=== PATIENT | male | born 1960 | race Caucasian/White ===

== ENCOUNTER 2022-07-21 20:45 | Inpatient (IN) ==
[2022-07-21] MEDS ORDERED: ASPIRIN 325 MG TABLET PO STA (21:37)
[2022-07-21] MEDS ORDERED: ONDANSETRON 4 MG/2 ML VIAL IV STA (21:37)
[2022-07-21] MEDS ORDERED: FUROSEMIDE 40 MG/4 ML VIAL IV STA (21:37)
[2022-07-21] MEDS ORDERED: ALBUTEROL/IPRATROPIUM 3 ML NEB RESP TX STA (21:37)
[2022-07-21] MEDS ORDERED: methylPREDNISolone SOD SUC 125 MG/2 ML VIAL IV STA (21:37)
[2022-07-21] MEDS ORDERED: ALBUTEROL NEB SOLN 5 MG/ML 20 ML/BOTTLE CONT NEB SCH (22:00)
[2022-07-21 22:02] LABS: Basophils # 0.1 10*3/uL (0.0-0.2); Basophils % 0.3 % (0.0-0.8); Hematocrit 46.2 VOL% (42.0-52.0); Immature Granulocytes % 2.7 %; Immature Granulocytes Absolute 0.76 #; Lymphocytes # 0.8 10*3/uL (1.4-4.0); Lymphocytes % 2.7 % (21.2-54.2); Mean Corpuscular HGB Conc 32.5 GM/DL (32-36); Mean Corpuscular Volume 91.3 FL (87-102); Monocytes # 2.2 10*3/uL (0.11-0.8); Monocytes % 7.8 % (1.7-12.7); NRBC # 0.03 10*3/uL; Neutrophils % 86.5 % (38.7-73.9); Platelet Count 422 T/CUMM (130-400); Red Blood Count 5.06 MC/CUMM (3.8-5.5); Red Cell Distribution Width 13.6 % (9.3-17.3); White Blood Count 27.9 T/CUMM (4-12)
[2022-07-21 22:14] LABS: Arterial Base Excess iSTAT 4 MMOL/L (-2.5-2.5); Arterial Bicarbonate iSTAT 31.2 MMOL/L (20-26); Arterial O2 Saturation iSTAT 99 % (95-100); Arterial PCO2 iSTAT 57 MM HG (35-48); Arterial PO2 iSTAT 142 MM HG (80-95); Arterial Total CO2 iSTAT 33 MMO/L (23-27); Arterial pH iSTAT 7.348 (7.35-7.45)
[2022-07-21 22:22] LABS: Alanine Aminotransferase 38 U/L (16-61); Albumin 3.2 G/DL (3.4-5.0); Alkaline Phosphatase 94 U/L (45-117); Aspartate Amino Transferase 16 U/L (0-37); Bilirubin,Total < 0.39 MG/DL (0.20-1.00); Blood Urea Nitrogen 27 MG/DL (7-18); Calcium 9.8 MG/DL (8.5-10.1); Carbon Dioxide 29 MMOL/L (21-32); Chloride 99 MMOL/L (98-107); Glucose 95 MG/DL (74-106); Osmolality,Calculated 274.1 MOS/KG (273-304); Sodium 135 MMOL/L (136-145); Total Protein 7.5 G/DL (6.4-8.2)
[2022-07-21 22:23] LABS: Lymphocytes 3 % (20-55); Platelet Estimate Increased; Total Cells Counted 100
[2022-07-22 01:02] LABS: Hyaline Casts,Urine 12 /LPF (0-3); Mucus,Urine Occasional /LPF (Occasional); RBC,Urine <1 /HPF (0-4); Squamous Epithelial Cell,Urine Occasional /HPF (0-10)
[2022-07-22 01:04] LABS: Bilirubin,Urine Negative (Negative); Blood, Urine Negative (Negative); Glucose,Urine (UA) Negative (Negative); Ketones,Urine Negative (Negative); Nitrite,Urine Negative (Negative); Protein,Urine Negative (Negative); Urine Appearance Clear (Clear); Urine Color Yellow (Yellow); Urine Urobilinogen 0.2 eU/dL (<2.0); Urine pH 5.5 (4.5-8.0)
[2022-07-22 01:06] LABS: Barbiturates Screen,Urine Negative (Negative); Benzodiazepines Screen,Urine Negative (Negative); Cannabinoid Screen,Urine Negative (Negative); Opiate Screen,Urine Positive (Negative); Phencyclidine Screen,Urine Negative (Negative)
[2022-07-22] MEDS: LEVOFLOXACIN INJ 750 MG/150 ML PREMIX IV SCH (02:40)
[2022-07-22] MEDS: ALBUTEROL 1.25 MG/3 ML NEB RESP TX PRN (05:00)
[2022-07-22 06:55] LABS: Basophils # 0.1 10*3/uL (0.0-0.2); Basophils % 0.3 % (0.0-0.8); Hematocrit 43.7 VOL% (42.0-52.0); Hemoglobin 14.1 GM/DL (14.0-18.0); Immature Granulocytes % 3.3 %; Lymphocytes # 0.5 10*3/uL (1.4-4.0); Lymphocytes % 1.9 % (21.2-54.2); Mean Corpuscular HGB Conc 32.3 GM/DL (32-36); Mean Corpuscular Volume 91.6 FL (87-102); Mean Platelet Volume 10.1 FL (9.6-12.0); Monocytes # 0.6 10*3/uL (0.11-0.8); Monocytes % 2.4 % (1.7-12.7); Neutrophils % 92.1 % (38.7-73.9); Platelet Count 386 T/CUMM (130-400); Red Blood Count 4.77 MC/CUMM (3.8-5.5); Red Cell Distribution Width 13.4 % (9.3-17.3)
[2022-07-22] MEDS: ALBUTEROL/IPRATROPIUM 3 ML NEB RESP TX SCH ×3 (06:55→13:26)
[2022-07-22 07:14] LABS: Lymphocytes 2 % (20-55); Platelet Estimate Adequate; Total Cells Counted 100
[2022-07-22 07:20] LABS: Alanine Aminotransferase 32 U/L (16-61); Albumin 2.5 G/DL (3.4-5.0); Alkaline Phosphatase 87 U/L (45-117); Aspartate Amino Transferase 15 U/L (0-37); Bilirubin,Total < 0.39 MG/DL (0.20-1.00); Blood Urea Nitrogen 26 MG/DL (7-18); Calcium 9.7 MG/DL (8.5-10.1); Carbon Dioxide 23 MMOL/L (21-32); Chloride 96 MMOL/L (98-107); Glucose 142 MG/DL (74-106); Osmolality,Calculated 261.2 MOS/KG (273-304); Potassium 5.2 MMOL/L (3.5-5.1); Sodium 127 MMOL/L (136-145); Total Protein 7.4 G/DL (6.4-8.2)
[2022-07-22] MEDS: BUDESONIDE/FORMOTEROL 160-4.5 INHALER 6 GM INH SCH ×2 (09:43→22:00)
[2022-07-22] MEDS: ENOXAPARIN 40 MG/0.4 ML SYRINGE SUBCUT SCH (09:43)
[2022-07-22] MEDS: methylPREDNISolone SOD SUC 40 MG/1 ML VIAL IV SCH ×2 (09:43→17:18)
[2022-07-22] MEDS: oxyCODONE/ACETAMINOPHEN 5-325 MG TABLET PO PRN ×3 (10:50→19:31)
[2022-07-23] MEDS: oxyCODONE/ACETAMINOPHEN 5-325 MG TABLET PO PRN ×4 (00:46→16:12)
[2022-07-23] MEDS: methylPREDNISolone SOD SUC 40 MG/1 ML VIAL IV SCH ×3 (00:57→16:12)
[2022-07-23] MEDS: LEVOFLOXACIN INJ 750 MG/150 ML PREMIX IV SCH (02:35)
[2022-07-23] MEDS: ALBUTEROL/IPRATROPIUM 3 ML NEB RESP TX SCH ×4 (07:30→19:10)
[2022-07-23] MEDS: ENOXAPARIN 40 MG/0.4 ML SYRINGE SUBCUT SCH (09:37)
[2022-07-23] MEDS: ASPIRIN CHEW 81 MG TABLET PO SCH (09:37)
[2022-07-23] MEDS: BUDESONIDE/FORMOTEROL 160-4.5 INHALER 6 GM INH SCH ×2 (09:38→21:35)
[2022-07-23] MEDS: ALBUTEROL 1.25 MG/3 ML NEB RESP TX PRN (11:03)
[2022-07-23] MEDS ORDERED: ALPRAZolam 0.5 MG TABLET PO PRN (11:11)
[2022-07-23] MEDS ORDERED: traZODone 50 MG TABLET PO PRN (13:44)
[2022-07-23] MEDS: VENLAFAXINE XR 75 MG CAPSULE PO SCH (13:54)
[2022-07-23] MEDS: NICOTINE 21 MG/24 HR PATCH TRANSDERM SCH (15:31)
[2022-07-23] MEDS: clonazePAM 0.5 MG TABLET PO SCH (21:36)
[2022-07-24] MEDS: methylPREDNISolone SOD SUC 40 MG/1 ML VIAL IV SCH ×3 (00:10→16:40)
[2022-07-24] MEDS: ALBUTEROL/IPRATROPIUM 3 ML NEB RESP TX SCH ×4 (01:27→19:50)
[2022-07-24] MEDS: oxyCODONE/ACETAMINOPHEN 5-325 MG TABLET PO PRN ×4 (01:49→19:55)
[2022-07-24] MEDS: LEVOFLOXACIN INJ 750 MG/150 ML PREMIX IV SCH (02:00)
[2022-07-24] MEDS: ASPIRIN CHEW 81 MG TABLET PO SCH (09:23)
[2022-07-24] MEDS: VENLAFAXINE XR 75 MG CAPSULE PO SCH (09:23)
[2022-07-24] MEDS: ROFLUMILAST 500 MCG TABLET PO SCH (09:23)
[2022-07-24] MEDS: LOSARTAN 50 MG TABLET PO SCH (09:23)
[2022-07-24] MEDS: NICOTINE 21 MG/24 HR PATCH TRANSDERM SCH (09:24)
[2022-07-24] MEDS: ENOXAPARIN 40 MG/0.4 ML SYRINGE SUBCUT SCH (09:24)
[2022-07-24] MEDS: BUDESONIDE/FORMOTEROL 160-4.5 INHALER 6 GM INH SCH ×2 (09:25→21:36)
[2022-07-24] MEDS: amLODIPine 2.5 MG TABLET PO SCH (13:08)
[2022-07-24 14:02] LABS: Basophils % 0.2 % (0.0-0.8); Hematocrit 43.4 VOL% (42.0-52.0); Hemoglobin 14.2 GM/DL (14.0-18.0); Immature Granulocytes % 2.1 %; Immature Granulocytes Absolute 0.43 #; Lymphocytes # 0.3 10*3/uL (1.4-4.0); Lymphocytes % 1.6 % (21.2-54.2); Mean Corpuscular HGB Conc 32.7 GM/DL (32-36); Mean Platelet Volume 10.5 FL (9.6-12.0); Monocytes # 0.6 10*3/uL (0.11-0.8); Monocytes % 2.8 % (1.7-12.7); Neutrophils % 93.3 % (38.7-73.9); Platelet Count 365 T/CUMM (130-400); Red Blood Count 4.82 MC/CUMM (3.8-5.5); Red Cell Distribution Width 13.3 % (9.3-17.3); White Blood Count 20.4 T/CUMM (4-12)
[2022-07-24 14:19] LABS: Calcium 9.6 MG/DL (8.5-10.1); Osmolality,Calculated 266.8 MOS/KG (273-304); Potassium 4.4 MMOL/L (3.5-5.1)
[2022-07-24 14:27] LABS: Band Neutrophils 2 % (0-10); Lymphocytes 2 % (20-55); Platelet Estimate Increased
[2022-07-24 14:28] LABS: Total Cells Counted 100
[2022-07-24] MEDS: clonazePAM 0.5 MG TABLET PO SCH (21:36)
[2022-07-25] MEDS: ALBUTEROL/IPRATROPIUM 3 ML NEB RESP TX SCH ×3 (00:25→13:18)
[2022-07-25] MEDS: LEVOFLOXACIN INJ 750 MG/150 ML PREMIX IV SCH (00:31)
[2022-07-25] MEDS: methylPREDNISolone SOD SUC 40 MG/1 ML VIAL IV SCH ×3 (00:31→16:07)
[2022-07-25] MEDS: oxyCODONE/ACETAMINOPHEN 5-325 MG TABLET PO PRN ×2 (00:32→08:30)
[2022-07-25 05:14] LABS: Basophils % 0.2 % (0.0-0.8); Hematocrit 41.7 VOL% (42.0-52.0); Hemoglobin 13.4 GM/DL (14.0-18.0); Immature Granulocytes % 1.5 %; Lymphocytes # 0.2 10*3/uL (1.4-4.0); Lymphocytes % 1.2 % (21.2-54.2); Mean Corpuscular HGB Conc 32.1 GM/DL (32-36); Mean Platelet Volume 10.3 FL (9.6-12.0); Monocytes # 0.9 10*3/uL (0.11-0.8); Monocytes % 4.7 % (1.7-12.7); Neutrophils % 92.4 % (38.7-73.9); Platelet Count 332 T/CUMM (130-400); Red Blood Count 4.58 MC/CUMM (3.8-5.5); Red Cell Distribution Width 13.4 % (9.3-17.3)
[2022-07-25 05:34] LABS: Calcium 9.1 MG/DL (8.5-10.1); Osmolality,Calculated 266.7 MOS/KG (273-304); Potassium 4.6 MMOL/L (3.5-5.1)
[2022-07-25 05:41] LABS: Lymphocytes 2 % (20-55); Total Cells Counted 100
[2022-07-25 05:42] LABS: Calcium 9.3 MG/DL (8.5-10.1); Osmolality,Calculated 274.1 MOS/KG (273-304); Platelet Estimate Adequate
[2022-07-25] MEDS: ROFLUMILAST 500 MCG TABLET PO SCH (10:25)
[2022-07-25] MEDS: ASPIRIN CHEW 81 MG TABLET PO SCH (10:25)
[2022-07-25] MEDS: amLODIPine 2.5 MG TABLET PO SCH (10:25)
[2022-07-25] MEDS: VENLAFAXINE XR 75 MG CAPSULE PO SCH (10:25)
[2022-07-25] MEDS: LOSARTAN 50 MG TABLET PO SCH (10:25)
[2022-07-25] MEDS: NICOTINE 21 MG/24 HR PATCH TRANSDERM SCH (10:25)
[2022-07-25] MEDS: ENOXAPARIN 40 MG/0.4 ML SYRINGE SUBCUT SCH (10:25)
[2022-07-25] MEDS: BUDESONIDE/FORMOTEROL 160-4.5 INHALER 6 GM INH SCH (10:25)
[2022-07-25 17:07] VITALS: BP 153/80
[2022-07-26] MEDS ORDERED: LEVOFLOXACIN 750 MG TABLET PO SCH (09:00)
== END 2022-07-25 16:07 | disposition home or self-care (01) | DRG 140 ==
LOC: N.ED 20:45 → N.EDINP 07-22 01:17 → N.TELES 07-22 05:15
PROVIDERS: ADMIT Internal Medicine; ATTEND Internal Medicine

== ENCOUNTER 2022-08-04 23:46 | Observation (INO) ==
[2022-08-05] MEDS ORDERED: HYDROmorphone 1 MG/1 ML SYRINGE IV STA (00:13)
[2022-08-05] MEDS ORDERED: ONDANSETRON 4 MG/2 ML VIAL IV STA (00:13)
[2022-08-05] MEDS ORDERED: ALBUTEROL/IPRATROPIUM 3 ML NEB RESP TX STA (00:13)
[2022-08-05] MEDS ORDERED: methylPREDNISolone SOD SUC 125 MG/2 ML VIAL IV STA (00:13)
[2022-08-05] MEDS ORDERED: ALBUTEROL NEB SOLN 5 MG/ML 20 ML/BOTTLE CONT NEB SCH (00:30)
[2022-08-05 00:35] LABS: Basophils % 0.1 % (0.0-0.8); Eosinophils % 0.1 % (0.00-10.9); Hematocrit 40.2 VOL% (42.0-52.0); Immature Granulocytes % 0.2 %; Immature Granulocytes Absolute 0.02 #; Lymphocytes # 0.3 10*3/uL (1.4-4.0); Mean Corpuscular HGB Conc 32.3 GM/DL (32-36); Mean Corpuscular Volume 89.7 FL (87-102); Mean Platelet Volume 9.4 FL (9.6-12.0); Monocytes # 0.6 10*3/uL (0.11-0.8); Monocytes % 6.4 % (1.7-12.7); Neutrophils % 90.2 % (38.7-73.9); Platelet Count 168 T/CUMM (130-400); Red Blood Count 4.48 MC/CUMM (3.8-5.5); Red Cell Distribution Width 13.4 % (9.3-17.3); White Blood Count 8.9 T/CUMM (4-12)
[2022-08-05 00:42] LABS: Albumin 2.5 G/DL (3.4-5.0); Bilirubin,Total 0.5 MG/DL (0.20-1.00); Calcium 8.7 MG/DL (8.5-10.1); Osmolality,Calculated 260.7 MOS/KG (273-304); Potassium 4.2 MMOL/L (3.5-5.1); Total Protein 6.4 G/DL (6.4-8.2)
[2022-08-05 01:06] LABS: Lymphocytes 4 % (20-55); Platelet Estimate Adequate; Total Cells Counted 100
[2022-08-05] MEDS ORDERED: ONDANSETRON 4 MG/2 ML VIAL IV PRN (01:57)
[2022-08-05] MEDS ORDERED: ACETAMINOPHEN 325 MG TABLET PO PRN (01:57)
[2022-08-05] MEDS ORDERED: oxyCODONE/ACETAMINOPHEN 5-325 MG TABLET PO PRN (02:04)
[2022-08-05] MEDS ORDERED: MORPHINE 2 MG/1 ML SYRINGE IV PRN (02:06)
[2022-08-05] MEDS ORDERED: traZODone 50 MG TABLET PO PRN (03:29)
[2022-08-05] MEDS ORDERED: ALPRAZolam 0.5 MG TABLET PO PRN (03:29)
[2022-08-05 06:42] LABS: Hematocrit 40.9 VOL% (42.0-52.0); Immature Granulocytes % 0.5 %; Immature Granulocytes Absolute 0.04 #; Lymphocytes # 0.2 10*3/uL (1.4-4.0); Lymphocytes % 1.9 % (21.2-54.2); Mean Corpuscular HGB Conc 31.8 GM/DL (32-36); Mean Corpuscular Volume 91.9 FL (87-102); Mean Platelet Volume 9.4 FL (9.6-12.0); Monocytes # 0.1 10*3/uL (0.11-0.8); Monocytes % 1.4 % (1.7-12.7); Neutrophils % 96.2 % (38.7-73.9); Platelet Count 161 T/CUMM (130-400); Red Blood Count 4.45 MC/CUMM (3.8-5.5); Red Cell Distribution Width 13.2 % (9.3-17.3); White Blood Count 7.8 T/CUMM (4-12)
[2022-08-05] MEDS: methylPREDNISolone SOD SUC 40 MG/1 ML VIAL IV SCH ×4 (06:49→23:53)
[2022-08-05 07:01] LABS: Band Neutrophils 1 % (0-10); Lymphocytes 2 % (20-55); Total Cells Counted 100
[2022-08-05 07:02] LABS: Microcytosis Slight; Platelet Estimate Adequate
[2022-08-05 07:03] LABS: Albumin 2.1 G/DL (3.4-5.0); Bilirubin,Total 0.4 MG/DL (0.20-1.00); Calcium 9.3 MG/DL (8.5-10.1); Osmolality,Calculated 258.1 MOS/KG (273-304); Total Protein 7.3 G/DL (6.4-8.2)
[2022-08-05] MEDS: ALBUTEROL/IPRATROPIUM 3 ML NEB RESP TX SCH ×3 (07:10→18:54)
[2022-08-05] MEDS ORDERED: PANTOPRAZOLE 40 MG TABLET PO SCH (09:00)
[2022-08-05] MEDS: LOSARTAN 50 MG TABLET PO SCH (09:18)
[2022-08-05] MEDS: ENOXAPARIN 40 MG/0.4 ML SYRINGE SUBCUT SCH (09:18)
[2022-08-05] MEDS: ASPIRIN CHEW 81 MG TABLET PO SCH (09:18)
[2022-08-05] MEDS: amLODIPine 2.5 MG TABLET PO SCH (09:18)
[2022-08-05] MEDS: VENLAFAXINE XR 75 MG CAPSULE PO SCH (09:18)
[2022-08-05] MEDS ORDERED: MELATONIN 3 MG TABLET PO PRN (10:40)
[2022-08-05] MEDS: ROFLUMILAST 500 MCG TABLET PO SCH (14:39)
[2022-08-05] MEDS: BUDESONIDE/FORMOTEROL 160-4.5 INHALER 6 GM INH SCH ×2 (17:45→21:39)
[2022-08-05] MEDS ORDERED: clonazePAM 0.5 MG TABLET PO SCH (21:00)
[2022-08-05] MEDS ORDERED: MELATONIN 3 MG TABLET PO SCH (21:00)
[2022-08-05] MEDS: CHOLECALCIFEROL 5,000 UNIT TABLET PO SCH (21:39)
[2022-08-05] MEDS: FAMOTIDINE 20 MG TABLET PO SCH (21:39)
[2022-08-05] MEDS: ASCORBIC ACID 500 MG TABLET PO SCH (21:39)
[2022-08-05] MEDS: oxyCODONE IR 5 MG TABLET PO PRN (22:15)
[2022-08-06] MEDS: ALBUTEROL/IPRATROPIUM 3 ML NEB RESP TX SCH ×3 (01:19→14:30)
[2022-08-06 05:11] LABS: Hematocrit 35.1 VOL% (42.0-52.0); Hemoglobin 11.4 GM/DL (14.0-18.0); Immature Granulocytes % 0.5 %; Immature Granulocytes Absolute 0.03 #; Lymphocytes # 0.3 10*3/uL (1.4-4.0); Lymphocytes % 3.9 % (21.2-54.2); Mean Corpuscular HGB Conc 32.5 GM/DL (32-36); Mean Corpuscular Volume 89.8 FL (87-102); Mean Platelet Volume 9.9 FL (9.6-12.0); Monocytes # 0.3 10*3/uL (0.11-0.8); Monocytes % 4.9 % (1.7-12.7); Neutrophils % 90.7 % (38.7-73.9); Platelet Count 171 T/CUMM (130-400); Red Blood Count 3.91 MC/CUMM (3.8-5.5); Red Cell Distribution Width 13.1 % (9.3-17.3); White Blood Count 6.5 T/CUMM (4-12)
[2022-08-06 05:34] LABS: Calcium 9.2 MG/DL (8.5-10.1); Osmolality,Calculated 270.2 MOS/KG (273-304)
[2022-08-06 05:47] LABS: Band Neutrophils 9 % (0-10); Lymphocytes 3 % (20-55); Microcytosis Slight; Total Cells Counted 100
[2022-08-06 05:48] LABS: Platelet Estimate Adequate
[2022-08-06] MEDS ORDERED: ZINC SULFATE 220 MG CAPSULE PO SCH (09:00)
[2022-08-06] MEDS ORDERED: CHOLECALCIFEROL 1,000 UNIT TABLET PO SCH (09:00)
[2022-08-06] MEDS ORDERED: ZINC GLUCONATE 50 MG TABLET PO SCH (09:00)
[2022-08-06] MEDS ORDERED: CETIRIZINE 10 MG TABLET PO SCH (09:00)
[2022-08-06] MEDS: ASPIRIN CHEW 81 MG TABLET PO SCH (10:21)
[2022-08-06] MEDS: CHOLECALCIFEROL 5,000 UNIT TABLET PO SCH (10:21)
[2022-08-06] MEDS: LOSARTAN 50 MG TABLET PO SCH (10:21)
[2022-08-06] MEDS: ROFLUMILAST 500 MCG TABLET PO SCH (10:21)
[2022-08-06] MEDS: amLODIPine 2.5 MG TABLET PO SCH (10:21)
[2022-08-06] MEDS: ASCORBIC ACID 500 MG TABLET PO SCH (10:21)
[2022-08-06] MEDS: VENLAFAXINE XR 75 MG CAPSULE PO SCH (10:21)
[2022-08-06] MEDS: FAMOTIDINE 20 MG TABLET PO SCH (10:21)
[2022-08-06] MEDS: ENOXAPARIN 40 MG/0.4 ML SYRINGE SUBCUT SCH (10:22)
[2022-08-06] MEDS: BUDESONIDE/FORMOTEROL 160-4.5 INHALER 6 GM INH SCH (10:22)
[2022-08-06] MEDS: methylPREDNISolone SOD SUC 40 MG/1 ML VIAL IV SCH ×2 (10:22→17:08)
[2022-08-06] MEDS: oxyCODONE IR 5 MG TABLET PO PRN (14:04)
[2022-08-06 16:16] VITALS: BP 137/74
== END 2022-08-06 17:45 | disposition home or self-care (01) ==
LOC: EDBD → EDUNIT# → N.EDINP 23:46 → N.ED 23:46 → SUATTDRO 08-05 01:57 → N.TELEN 08-05 17:37
PROVIDERS: ADMIT Internal Medicine; ATTEND Internal Medicine